=== PATIENT | male | born 1950 | race Caucasian/White ===

== ENCOUNTER 2018-12-21 13:20 | Inpatient (IN) | payer OTHER ==
[~2018-12-21] VITALS: Ht 175.3 cm; Wt 104.3 kg
[2019-01-04] MEDS ORDERED: CARDIZEM CD120 MG PO (16:17)
[2019-01-04] MEDS ORDERED: TOPROL XL100 MG PO (16:17)
[2019-01-04] MEDS ORDERED: BALANCE B-1001 EACH PO (16:18)
[2019-01-04] MEDS ORDERED: XARELTO20 MG PO (16:18)
[2019-01-04] MEDS ORDERED: ANORO ELLIPTA1 EACH IH (16:19)
[2019-01-04] MEDS ORDERED: PROTEINEX1 TA1 PO (16:20)
== END 2019-01-04 16:57 | disposition home or self-care (01) | DRG 308 ==
LOC: ER 13:20 → MEDI 18:47 → ICU-2 18:47 → ICU 18:47 → MEDI 12-31 14:32
PROVIDERS: ADMIT Internal Medicine
PROC: B246ZZZ Ultrasonography of Right and Left Heart (ICD-10-PCS; principal; 2018-12-21)
PROC: 4A033R1 Measurement of Arterial Saturation, Peripheral, Percutaneous Approach (ICD-10-PCS; 2018-12-24)
PROC: 3E0F7GC Introduction of Other Therapeutic Substance into Respiratory Tract, Via Natural or Artificial Opening (ICD-10-PCS; 2018-12-27)
PROC: BB24ZZZ Computerized Tomography (CT Scan) of Bilateral Lungs (ICD-10-PCS; 2018-12-28)
PROC: 4A12X4Z Monitoring of Cardiac Electrical Activity, External Approach (ICD-10-PCS; 2018-12-31)
PROC: BQ37ZZZ Magnetic Resonance Imaging (MRI) of Right Knee (ICD-10-PCS; 2019-01-03)
DX: I48.2 Chronic atrial fibrillation (principal); J80 Acute respiratory distress syndrome; J18.9 Pneumonia, unspecified organism; J90 Pleural effusion, not elsewhere classified; I44.1 Atrioventricular block, second degree; F10.20 Alcohol dependence, uncomplicated; Z87.891 Personal history of nicotine dependence; M17.11 Unilateral primary osteoarthritis, right knee; E66.09 Other obesity due to excess calories; M22.41 Chondromalacia patellae, right knee
CPT/HCPCS: 73221